=== PATIENT | male | born 1970 | race Caucasian/White ===

== ENCOUNTER 2018-01-14 08:49 | Day surgery (SDC) | payer BC ==
[~2018-01-14] VITALS: Ht 162.6 cm; Wt 125.4 kg
[~2018-01-14 08:49] MED LIST: BUPR150ER; FERRETTS325 MG; GLIP10; LISI5; METF850; Omeprazole20 M1; PIOG30; PRAV20
== END 2018-01-14 10:00 | disposition home or self-care (01) ==
LOC: ORSCSDS 08:49
DX: D50.9 Iron deficiency anemia, unspecified (principal); K31.7 Polyp of stomach and duodenum; K20.9 Esophagitis, unspecified; K29.00 Acute gastritis without bleeding; E11.9 Type 2 diabetes mellitus without complications; I10 Essential (primary) hypertension; E78.5 Hyperlipidemia, unspecified; G47.33 Obstructive sleep apnea (adult) (pediatric); Z79.84 Long term (current) use of oral hypoglycemic drugs; Z79.899 Other long term (current) drug therapy
CPT/HCPCS: 82947; 88305; 88342; J7120

== ENCOUNTER 2018-07-01 08:37 | Day surgery (SDC) | payer BC ==
[~2018-07-01] VITALS: Ht 165.1 cm; Wt 123.7 kg
[2018-07-01] MEDS ORDERED: DICL75ER PO (09:32)
== END 2018-07-01 10:44 | disposition home or self-care (01) ==
LOC: ORSCSDS 08:37
PROVIDERS: Internal Medicine Gastroenterology
PROC: 0DBP8ZX Excision of Rectum, Via Natural or Artificial Opening Endoscopic, Diagnostic (ICD-10-PCS; principal; 2018-07-01 10:00)
DX: D50.9 Iron deficiency anemia, unspecified (principal); K62.1 Rectal polyp; K57.30 Diverticulosis of large intestine without perforation or abscess without bleeding; K21.9 Gastro-esophageal reflux disease without esophagitis; E11.9 Type 2 diabetes mellitus without complications; I10 Essential (primary) hypertension; E78.5 Hyperlipidemia, unspecified; G47.33 Obstructive sleep apnea (adult) (pediatric); F32.9 Major depressive disorder, single episode, unspecified; Z79.84 Long term (current) use of oral hypoglycemic drugs; Z79.899 Other long term (current) drug therapy
CPT/HCPCS: 82947; 88305; J7120